=== PATIENT | male | born 1935 | race African-American/Black ===

== ENCOUNTER → 2018-05-12 | Day surgery (SDC) | payer MEDICARE ==
[2018-05-08 13:39] LABS: BASOPHILS % 0.2 % (0.0-1.0); EOSINOPHILS # (AUTO) 0.1 (0.0-0.4); HEMATOCRIT 44.7 % (38.2-49.6); HEMOGLOBIN 14.6 g/dL (14.0-18.0); LYMPHOCYTES % 22.6 % (18.0-39.1); MEAN CORPUSCULAR HEMOGLOBIN 28.9 pg (28-32); MEAN CORPUSCULAR HGB CONC 32.7 g/dL (31-35); MEAN CORPUSCULAR VOLUME 88.3 fL (81-99); MONOCYTES # (AUTO) 0.2 (0.2-0.8); MONOCYTES % 3.7 % (4.4-11.3); NEUTROPHILS % 69.8 % (38.7-80.0); PLATELET COUNT 184 x10e3/uL (140-360); RED BLOOD COUNT 5.06 x10e6/uL (4.3-5.7); RED CELL DISTRIBUTION WIDTH 14.4 % (11.7-14.4)
--- NOTE | 2018-05-08 13:56 | Diagnostic Imaging Report ---
PROCEDURE: Frontal and lateral views of the chest. COMPARISON: None. INDICATIONS: PREOPERATIVE CHEST XRAY FOR RIGHT FOOT SURGERY FINDINGS: Lines/tubes: None. Lungs: The lungs are well inflated and clear. There is no evidence of pneumonia or pulmonary edema. Mildly elevated left hemidiaphragm. Pleura: There is no pleural effusion or pneumothorax. Heart and mediastinum: The heart and the mediastinum are normal. Bones: No acute bony abnormality. IMPRESSION: 1. No acute cardiopulmonary disease. Dictated by: Cassius Stratton M.D. on 05/08/2018 at 14:01 Electronically approved by: Cassius Stratton M.D. on 05/08/2018 at 14:01
[2018-05-08 14:04] LABS: ANION GAP 12.1 mmol/L (8-16); BLOOD UREA NITROGEN 15 mg/dL (7-26); BUN/CREATININE RATIO 12 (6-25); CALCIUM 10.4 mg/dL (8.4-10.2); CARBON DIOXIDE 29 mmol/L (22-29); CHLORIDE 102 mmol/L (98-107); CREATININE, SERUM 1.21 mg/dL (0.72-1.25); EST GLOMERULAR FILTRATION RATE > 60 ML/MIN (60-); GLUCOSE 116 mg/dL (74-118); POTASSIUM 4.1 mmol/L (3.5-5.1); SODIUM 139 mmol/L (136-145)
[~2018-05-12] MED LIST: AMLODIPINE BESYL5 MG PO; BUPIVACAINE HCL 0.5% 10ML MPF VIAL INJ ONE; CENTRUM COMPLE1 EACH PO; DEXAMETHASONE SOD PHOS INJ 4 MG/ML VIAL ONE; FENTANYL CITRATE/PF 100MCG/2 ML INJ ONE; FLOMAX0.4 MG PO; HYDROCHLOROTHIA25 MG PO; LATANOPROST2.5 ML OP; LIDOCAINE HCL 2% LOCAL INJ 5 ML SDV VIAL INJ ONE; METHOTREXATE2.5 MG PO; MIRTAZAPINE15 MG PO; ONDANSETRON HCL INJ 2 MG/ML VIAL ONE; PREDNISONE5 MG PO; PROPOFOL IV EMULSION 10 MG/ML 20 ML VIAL ONE; SEVOFLURANE INHAL SOLN 250 ML PEN BTL ONE
--- NOTE | 2018-05-12 17:07 | Operative Report ---
DATE OF PROCEDURE: May 12, 2018 PREOPERATIVE DIAGNOSIS: Hypertrophic 5th metatarsal head right foot with bone spur and plantar ulceration. POSTOPERATIVE DIAGNOSIS: Hypertrophic 5th metatarsal head right foot with bone spur and plantar ulceration. TITLE OF OPERATION: Excision of 5th metatarsal head right foot with excision of bone spur and plantar ulceration right foot. ANESTHESIA: General endotracheal. HEMOSTASIS: Right thigh tourniquet 350 mmHg. PROCEDURE IN DETAIL: The patient was taken operating room in a mildly sedated state and placed upon the operating table in supine position. Following induction of general anesthetic, the right lower extremity was elevated to 60 degrees to exsanguinate before inflating the pneumatic thigh tourniquet to 350 mmHg hemostasis. Right lower extremity was placed upon the operating table before performing the following procedure. Procedure #1: Excision of 5th metatarsal head of the right foot. A linear longitudinal incision made overlying the dorsal lateral aspect of the 5th metatarsal head of the right foot. The incision was deepened via sharp and blunt dissection at the level of dorsal capsular structure. Care was taken to identify and retract all vital structures encountered. The head of the 5th metatarsal was delivered in the surgical site and remodeled utilizing oscillating saw. the 5th digital musculature was noted and released. After irrigation the area was cultured and a TLS drain applied. Attention was then directed to the plantar aspect of the foot. Two converging semielliptical incisions were made overlying the prominence of bone plantarly which was creating the ulceration. The ulceration and the bone were ellipsed and remodeled after removal. The area was irrigated. Deep closure was 3-0 Vicryl, subcutaneous closure was 4-0 Vicryl and skin closure 4-0 nylon. The appropriate amount of compressive dressings were applied. Human tissue allograft was used to facilitate healing. The patient left the operating room with vital signs stable and in apparent satisfactory condition, having tolerated the anesthetic and the procedure very well. Job#: [id number]
== END | disposition home or self-care (01) ==
LOC: OR 05:42
PROVIDERS: ATTEND Podiatrist Foot Surgery
DX: M21.271 Flexion deformity, right ankle and toes (principal); L97.519 Non-pressure chronic ulcer of other part of right foot with unspecified severity; M77.51 Other enthesopathy of right foot and ankle; B07.8 Other viral warts; I10 Essential (primary) hypertension; N40.0 Benign prostatic hyperplasia without lower urinary tract symptoms; Z01.810 Encounter for preprocedural cardiovascular examination; Z01.812 Encounter for preprocedural laboratory examination; Z01.818 Encounter for other preprocedural examination; Z86.73 Personal history of transient ischemic attack (TIA), and cerebral infarction without residual deficits
CPT/HCPCS: 28104; 28113; 36415; 71046; 76000; 80048; 85025; 88305; 88311; 93005; J1100; J2001; J2405; Q4100; 88304